=== PATIENT | male | born 1995 | race Caucasian/White ===

== ENCOUNTER 2016-09-09 12:07 | Emergency (ER) | payer MEDICAID, OTHER ==
[~2016-09-09] VITALS: Wt 85.0 kg
[~2016-09-09 12:07] MED LIST: ALBU8.5H5 IH; BENZ100C70 PO; PRED20TA PO
--- NOTE | 2016-09-09 13:15 | ERD ---
ER Documentation Chief Complaint Date/Time DATE: 09/09/16 TIME: 13:04 Chief Complaint LEFT EAR PAIN X 1 WEEK HPI 20-year-old male accompanied by mother complaining of feeling left ear "clogged " in the mornings upon awake for the past week. States that he feels like pressure sensation one driving to high altitude. The sensation resolves later in the day. Mother stated that he also has loss of nasal discharge in the mornings. Denies ear pain. Denies fever or chills. Denies cough. ROS All systems reviewed and are negative except as per history of present illness. Medications Home Meds Active Scripts Neomycin/Polymyxin/Hydrocort* (Cortisporin* Otic) 10 Ml Susp, 4 DROP BOTH EARS QID for 5 Days, #1 EA Prov:ROSENDO ACUÑA. EDGE BEADER 09/09/16 Carbamide Peroxide (Ear Wax Removal) 15 Ml Drops, 5-10 DROP OTIC BID for 3 Days , #1 BOTTLE Prov:ROSENDO ACUÑA. EDGE BEADER 09/09/16 Prednisone* (Prednisone*) 20 Mg Tab, 20 MG PO DAILY, #6 TAB Prov:KELLIE HALL PA-C 12/13/14 Benzonatate* (Tessalon Perle*) 100 Mg Capsule, 100 MG PO Q8H Y for COUGH, #30 CAP Prov:KELLIE HALL PA-C 12/13/14 Albuterol Sulfate* (Albuterol Sulfate* HFA) 8.5 Gm Hfa.aer.ad, 2 PUFF IH Q4H Y for WHEEZING AND SOB, #1 EA Prov:KELLIE HALL PA-C 12/13/14 PMhx/Soc Medical and Surgical Hx: pt denies Medical Hx, pt denies Surgical Hx Hx Alcohol Use: No Hx Substance Use: No Hx Tobacco Use: No Smoking Status: Never smoker Physical Exam Vitals Vital Signs Date Time Temp Pulse Resp B/P Pulse Ox O2 Delivery O2 Flow Rate FiO2 09/09/16 12:25 98.0 59 18 111/71 99 Physical Exam General impression: Well-developed, well-nourished. Alert, oriented, in no acute distress Head: Normocephalic, atraumatic. Eyes: PERRL, EOM normal. Conjunctiva not injected. ENT: Significant amount of cerumen noted in bilateral ear canals, and able to visualize tympanic membrane. Nasal mucosa erythematous and swollen. Oral mucosa and oropharynx are normal. Neck: Supple, nontender. No lymphadenopathy. No nuchal rigidity. Respiration: Normal respiratory effort. Lungs clear to auscultate bilaterally. No wheezes, rales or rhonchi. Cardiovascular: Regular rate and rhythm. No murmurs or extra heart sounds. Neuro: Mental status normal, speech normal. 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 Skin: Normal turgor. No rash or lesions. Psych: Normal mood and affect. Procedures/MDM Procedure note: Removal of impacted cerumen Large amount of cerumen was removed with both irrigation and curette by me. There is still significant amount of cerumen remaining, unable to visualize TM through the cerumen. Patient presents with bilateral cerumen impaction. The pressure sensation likely due to combination of cerumen impaction and rhinitis. No sign of acute otitis media or externa. Patient is given instruction for home cerumen removal. Patient appears well, stable for discharge and outpatient management. Medical decision making shared with patient and family. Education provided to patient and family. Patient and family expressed understanding of the plan. Medications on discharge: Carbamide peroxide drops, Cortisporin otic. Follow-up: Primary care provider in 2-3 days or return to ED if worse. Departure Diagnosis: Primary Impression: Cerumen impaction Laterality: bilateral Qualified Code: H61.23 - Bilateral impacted cerumen Condition: Good Patient Instructions: Cerumen Impaction, Home Care [facility] Usted se teran hecho un examen mdico de control que le indica que no est en katrin condicin que requiera tratamiento urgente en el Departamento de Emergencia. Un estudio ms profundo y el tratamiento de tejada condicin pueden esperar sin ningn riesgo hasta que usted sea atendida/o en el consultorio de tejada mdico o katrin cl arnoldo. Es responsabilidad suya arreglar katrin john paul para el seguimiento del pricilla. MANEJO DE CONDICIONES NO URGENTES EN EL FUTURO 1) Si usted tiene un mdico de atencin primaria: Usted debera llamar a tejada mdico de atencin primaria antes de venir al departamento de emergencia. Despus de las horas de consultorio, tejada doctor o tejada asociado/a est disponible por telfono. El mdico o enfermero de darío en el servicio telefnico puede asesorarle por viviane medio para atender el problema, o pricilla contrario se puede programar katrin john paul. 2) Si usted no tiene un mdico de atencin primaria: Llame al mdico o clnica de referencia que aparece abajo amrita las horas de consultorio para hacer katrin john paul para que le vean. CLINICAS: [facility] [phone] [facility] [phone] [facility] [phone] [place] [phone] [address] [facility] [facility] [phone] [address] [facility] [phone] [address] Additional Instructions: Llame al doctor nombrado abajo (Referral Sources) MAANA y raudel katrin JOHN PAUL PARA DENTRO DE KATRIN SEMANA. Dgale a la secretaria que nosotros le instruimos hacer esta john paul.Avise o llame si tejada condicin se empeora antes de la john paul. ROSENDO ACUÑA NP Sep 09, 2016 13:14
[2016-09-09] MEDS ORDERED: NPH10OT BOTH EARS (15:11)
[2016-09-09] MEDS ORDERED: CARB15DR23 OTIC (15:11)
== END 2016-09-09 15:27 | disposition home or self-care (01) ==
LOC: FTE 12:07
DX: H61.23 Impacted cerumen, bilateral (principal)
CPT/HCPCS: 99283

== ENCOUNTER 2016-11-22 00:31 | Emergency (ER) | payer MEDICAID, OTHER ==
[~2016-11-22] VITALS: Ht 175.3 cm; Wt 69.0 kg
[~2016-11-22 00:31] MED LIST changes: +CARB15DR23 OTIC; +NPH10OT BOTH EARS
[2016-11-22 00:35] VITALS: Ht 175.3 cm; Wt 69.0 kg
--- NOTE | 2016-11-22 02:51 | ERD ---
ER Documentation Chief Complaint Date/Time DATE: 11/22/16 TIME: 02:40 Chief Complaint fever/sore throat since yesterday HPI Sore throat and fever. ROS All systems reviewed and are negative except as per history of present illness. Medications Home Meds Active Scripts Acetaminophen* (Tylophen*) 500 Mg Capsule, 1 CAP PO Q6H Y for PAIN AND OR ELEVATED TEMP, #20 CAP Prov:PASILABANNOEMYAR F 11/22/16 Ibuprofen* (Motrin*) 600 Mg Tab, 600 MG PO Q8, #30 TAB Prov:PASILABAN,KLAR F 11/22/16 Amoxicillin/Potassium Clav (Amox-Clav 875-125 mg Tablet) 875-125 mg Tab, 1 TAB PO BID for 7 Days, #14 TAB Prov:PASILABAN,KLAR F 11/22/16 Neomycin/Polymyxin/Hydrocort* (Cortisporin* Otic) 10 Ml Susp, 4 DROP BOTH EARS QID for 5 Days, #1 EA Prov:ROSENDO ACUÑA. FACILITIES MAINTENANCE ASSISTANT 09/09/16 Carbamide Peroxide (Ear Wax Removal) 15 Ml Drops, 5-10 DROP OTIC BID for 3 Days , #1 BOTTLE Prov:ROSENDO ACUÑA. FACILITIES MAINTENANCE ASSISTANT 09/09/16 Prednisone* (Prednisone*) 20 Mg Tab, 20 MG PO DAILY, #6 TAB Prov:KELLIE HALL PA-C 12/13/14 Benzonatate* (Tessalon Perle*) 100 Mg Capsule, 100 MG PO Q8H Y for COUGH, #30 CAP Prov:KELLIE HALL PA-C 12/13/14 Albuterol Sulfate* (Albuterol Sulfate* HFA) 8.5 Gm Hfa.aer.ad, 2 PUFF IH Q4H Y for WHEEZING AND SOB, #1 EA Prov:KELLIE HALL PA-C 12/13/14 Allergies Allergies: Coded Allergies: No Known Drug Allergies (Verified Allergy, Unknown, 11/22/16) PMhx/Soc 21-year-old male who presents to the emergency department for sore throat and fever since yesterday. Patient stated that he felt like he had a fever yesterday but never took his temperature. Denies headache, dizziness, blurry vision, neck pain, difficulty swallowing, shoulder pain, chest pain, back pain, abdominal pain, nausea, vomiting, abdominal pain, urinary symptoms, recent exposure to any illness, recent antibiotic use in the last 3 months, numbness or tingling sensation. 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 Denies smoking, use of alcoholic beverages, use of illegal drugs. Medical and Surgical Hx: pt denies Medical Hx, pt denies Surgical Hx Hx Alcohol Use: No Hx Substance Use: No Hx Tobacco Use: No Smoking Status: Never smoker Physical Exam Vitals Vital Signs Date Time Temp Pulse Resp B/P Pulse Ox O2 Delivery O2 Flow Rate FiO2 11/22/16 00:35 98.9 80 20 136/63 98 Physical Exam CONSTITUTIONAL: Well-appearing; well-nourished; in no apparent distress. HEAD: Normocephalic; atraumatic. EYES: Conjunctiva clear, sclera non-icteric, EOM intact. PERRL Ears: Hearing intact. EACs clear, TMs non-bulging, non-inflamed, translucent & mobile, ossicles normal appearance, No obstructions, no erythema, no discharges Nose: No obstructions. No polyps. No external lesions. Mucosa non-inflamed. No external lesions, septum and turbinates normal. No rhinorrhea. No discharges. Frontal sinus is tender to palpation. Maxillary sinus is tender to palpation. MOUTH: Moist mucous membranes, no lesion, no obstructions, no vesicles, no thrush, patent airway Throat: Uvula in midline. Right tonsil is +2 with erythema, mild exudate. Left tonsil is +2 with erythema, exudate. Tolerating secretions well. Good gag reflex. Patent airway. Neck: Supple, without lesions, bruits, or adenopathy. No mass. Thyroid non- enlarged and non-tender to palpation. CHEST: Symmetrical chest. Respirations even and not labored. No retractions noted. CARDIOVASCULAR: Normal S1, S2. RRR. No murmurs, gallops. RESPIRATORY: Normal chest excursion with respiration; breath sounds clear and equal bilaterally; no wheezes, rhonchi, or rales. Breathing even and unlabored. Speaking in clear, full, and complete sentences w/ ease. ABDOMEN: Normal bowel sounds normal. Soft, round, non-distended, non-guarding, no tenderness, no rebound, no organomegaly, no masses, no pulsating abdominal mass. No hernia. No peritoneal signs. : No CVA tenderness. BACK: Symmetrical shoulder. Spine is midline without deformity, tenderness. No evidence of trauma or deformity. PELVIS: Stable pelvis. No evidence of trauma or deformity. MUSCULOSKELETAL: Normal gait and station. No misalignment, asymmetry, crepitation, defects, tenderness, masses, effusions, decreased range of motion, instability, atrophy or abnormal strength or tone in the head, neck, spine, ribs , pelvis or extremities. No calf tenderness. NEUROVASCULAR: Distal pulses are present. Pedal pulse are present, equal, and normal. Capillary refills are < 2 seconds. NEUROLOGIC: Alert and oriented x4. Speaks full and clear sentences. Cranial Nerves II-XII normal. Sensation to pain, touch, and proprioception normal. Grossly unremarkable. No neurologic deficits. Romberg test is negative. PSYCHOLOGICAL: The patients mood and manner are appropriate. No hallucinations , delusions. Not SI. Not HI. Has the capacity to decide for self SKIN: Normal for age and ethnicity; warm; dry; good turgor; no apparent lesions or exudates. No rashes, hives, discoloration. Intact. Procedures/MDM Examination. Disease process, medical treatment was explained to the patient and family member. Consultation: Differential diagnosis: Peritonsillar abscess versus strep throat versus otitis media versus otitis externa versus sinusitis versus upper respiratory infection Medical decision makin-year-old male who presents to the emergency department for sore throat and fever since yesterday. Patient stated that he felt like he had a fever yesterday but never took his temperature. Patient's complaint, my physical findings, my reevaluation are consistent with final diagnosis of strep throat, sinusitis. Medications prescribed are the following: Augmentin. Patient and family member are made aware of the side effects and adverse reactions of the medications prescribed. Instructed on when to seek emergent and medical attention in case allergic/anaphylactic reactions or severe side effects and or adverse reactions to medications. Patient and family member verbalized understanding. Patient instructed Instructed to follow-up with his PCP in 24-48 hours. Instructed to Call 911 for chest pain, shortness of breath. Advised to come back here in ED as soon as possible for severity of symptoms which includes but not limited to: any new symptoms; shortness of breath/difficulty of breathing; cardiovascular changes; severe gastrointestinal symptoms; signs and symptoms of bleeding and or infection; signs of compartment syndrome/neurovascular changes; neurological changes/deficits. Patient and family member verbalized understanding. Upon discharge, patient is alert and oriented x 4, speaks full and clear sentences, denies pain, has no neurological deficits, has no neurovascular deficits, difficulty of breathing. Breathing even and unlabored. Lung sounds are clear to auscultation. Not in distress. Appears comfortable. Ambulatory with steady gait. Appears satisfied with care provided here in ED. Departure Diagnosis: Primary Impression: Strep throat Additional Impression: Sinusitis Condition: Stable Additional Instructions: Patient instructed Instructed to follow-up with his PCP in 24-48 hours. Instructed to Call 911 for chest pain, shortness of breath. Advised to come back here in ED as soon as possible for severity of symptoms which includes but not limited to: any new symptoms; shortness of breath/difficulty of breathing; cardiovascular changes; severe gastrointestinal symptoms; signs and symptoms of bleeding and or infection; signs of compartment syndrome/neurovascular changes; neurological changes/deficits. Patient and family member verbalized understanding. LUCILA AMBROCIO November 22, 2016 02:51 LUCILA AMBROCIO November 22, 2016 02:51
[2016-11-22] MEDS ORDERED: IBUP-1542 PO (02:52)
[2016-11-22] MEDS ORDERED: ACET500C5 PO (02:52)
[2016-11-22] MEDS ORDERED: AMOX1TAB10 PO (02:52)
== END 2016-11-22 02:58 | disposition home or self-care (01) ==
LOC: FTE 00:31
DX: J02.0 Streptococcal pharyngitis (principal); J32.9 Chronic sinusitis, unspecified
CPT/HCPCS: 99283